=== PATIENT | female | born 1985 ===

== ENCOUNTER → 2021-11-21 | Outpatient (CLI) | payer OTHER ==
--- NOTE | 2021-11-22 02:37 | RAD ---
EXAM: ULTRASOUND SOFT TISSUE NECK CLINICAL HISTORY: Disorder of thyroid. COMPARISON: No priors TECHNIQUE: Ultrasound examination of the thyroid gland was performed FINDINGS: Sonographic evaluation of the thyroid gland was performed and evaluated using ACR TI-RADS criteria. Right thyroid lobe measures 5.6 x 1.3 x 1.1 cm. Left thyroid lobe measures 3.4 x 1.3 x 1.0 cm. Heterogeneous echotexture of the thyroid gland. Left thyroid lobe 3 mm simple cyst. Benign. Separately in the left thyroid lobe is a wider than tall hyperechoic solid nodule measures 0.7 x 0.5 x 0.5 cm, per ACR guidelines this is TI-RADS 3, given its size of less than 1.5 cm no follow-up is ne cessary based on criteria. IMPRESSION: Thyroid nodules as described above Electronically signed by: Vivek Samuel MD (11/21/2021 4:44 PM) [facility]
== END ==
LOC: US 09:39
PROVIDERS: ATTEND Family Medicine
DX: E04.1 Nontoxic single thyroid nodule (principal)
CPT/HCPCS: 76536